=== PATIENT | female | born 1990 | race Caucasian/White ===

== ENCOUNTER 2019-04-27 10:17 | Emergency (ER) | payer OTHER, SELFPAY ==
[2019-04-27 10:20] VITALS: BP 127/83; PULSE 80; RESP 17; TEMP 36.9; O2SAT 100; BMI 31.1
--- NOTE | 2019-04-27 10:33 | PC.NURSE ---
pt noted bruising left breast, concern for breast cancer, states, she is leaving out of town. denies pain,drainage, fever or vomiting. denies trauma,
--- NOTE | 2019-04-27 11:04 | ED.EXTPRO ---
HPI - Extremity Problem <Alayna Roberts PA-C - Last Filed: 04/27/19 12:58> General Chief complaint: Extremity Problem,Nontraumatic Stated complaint: bruise on l breast Time Seen by Provider: 04/27/19 11:01 Source: patient Mode of arrival: Ambulatory Limitations: no limitations History of Present Illness HPI Narrative: This generally healthy 29-year-old female comes to ED secondary to new bruise that appeared yesterday on the left breast, not painful. She denies any trauma. States that the day prior, there is a raised, swollen vein there. She has not noted any swollen veins or new bruises elsewhere. There is no pain around the bruise. She states she has a red spot that is been enlarging, started out like a pimple about 2 months ago under the right breast, has numerous other red spots on the trunk. Saw her PCP last week and was prescribed a steroid cream. Thinks that the degree of redness is improving but continues to get some new spots. She denies any swollen glands, fevers, lumps in the breasts. She states that she does have concerned after reading about inflammatory breast cancer, ongoing concerns of undiagnosed thyroid or autoimmune disease but denies any other new complaints today. She wanted to have this checked today because she is leaving town tomorrow so came to ED Related Data Allergies Allergy/AdvReac Type Severity Reaction Status Date / Time Sulfa (Sulfonamide Allergy Verified 04/27/19 10:27 Antibiotics) Review of Systems <Alayna Roberts PA-C - Last Filed: 04/27/19 12:58> Review of Systems ROS Unobtainable: All systems reviewed & are unremarkable except as noted in HPI and below PFSH <Alayna Roberts PA-C - Last Filed: 04/27/19 12:58> Medical History (Updated 04/27/19 @ 11:26 by Alayna Roberts PA-C) Dermatitis (Acute) Surgical History (Updated 04/27/19 @ 11:26 by Alayna Roberts PA-C) S/P T&A (status post tonsillectomy and adenoidectomy) (Resolved) Social History Smoking Status: Never smoker Social History Smoking Status: Never smoker Exam <Alayna Roberts PA-C - Last Filed: 04/27/19 12:58> Narrative Exam Narrative: GENERAL APPEARANCE: Patient sitting comfortably, in no distress. NECK: Supple, no lymphadenopathy LUNGS: Clear to auscultation bilaterally. HEART: Rate and rhythm regular without murmur, normal S1 and S2, no S3 or S4. BREASTS: Symmetric, no palpable masses, no nipple discharge. No SC or axillary nodes DERMATOLOGIC: Scattered pink nontender macules ranging in size from 5 to 10 mm, round to ovoid, a few with fine scale. Most concentrated on the mid back and chest. None on the nipples Initial Vital Signs Initial Vital Signs: Vital Signs Temperature 98.5 F 04/27/19 10:20 Pulse Rate 80 04/27/19 10:20 Respiratory Rate 17 04/27/19 10:20 Blood Pressure 127/83 04/27/19 10:20 Pulse Oximetry 100 04/27/19 10:20 <DO Mainor Sharma Last Filed: 04/28/19 07:44> Initial Vital Signs Initial Vital Signs: Vital Signs Temperature 98.5 F 04/27/19 10:20 Pulse Rate 80 04/27/19 10:20 Respiratory Rate 17 04/27/19 10:20 Blood Pressure 127/83 04/27/19 10:20 Pulse Oximetry 100 04/27/19 10:20 Course <Alayna Roberts PA-C - Last Filed: 04/27/19 12:58> Vital Signs Vital signs: Vital Signs - 8 hr 04/27/19 10:20 04/27/19 11:34 Temperature 98.5 F Pulse Rate 80 61 Respiratory Rate 17 14 Blood Pressure 127/83 113/76 Pulse Oximetry 100 98 <DO Mainor Sharma Last Filed: 04/28/19 07:44> Vital Signs Vital signs: Vital Signs - 8 hr 04/27/19 10:20 04/27/19 11:34 Temperature 98.5 F Pulse Rate 80 61 Respiratory Rate 17 14 Blood Pressure 127/83 113/76 Pulse Oximetry 100 98 Discharge Plan Departure Patient Disposition: Home Clinical Impression: Bruise of breast, Dermatitis Discharge Date/Time: 04/27/19 11:34 Instructions: Eczema Activity Restrictions/Additional Instructions: I suspect that your bruise is from a small broken blood vessel. I do not see any abnormalities with your glands or breast exam today. I do suspect you have a little bit of eczema or dermatitis type of rash. This could be psoriasis as well. You can try treating with the steroid cream you have, and if not getting better you should follow-up with your primary care provider and discuss a biopsy or referral to Dermatology. 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 Referrals: [employer] [facility] [Provider Group]
[2019-04-27 11:34] VITALS: BP 113/76; PULSE 61; RESP 14; O2SAT 98
== END 2019-04-27 11:34 | disposition home or self-care (01) ==
PROVIDERS: Emergency Provider Internal Medicine
DX: N64.89 Other specified disorders of breast (principal); L30.9 Dermatitis, unspecified
CPT/HCPCS: 99282